=== PATIENT | female | born 1965 | race Caucasian/White ===

== ENCOUNTER → 2016-09-10 | Day surgery (SDC) | payer BC ==
[~2016-09-10] MED LIST: CLARINEX5 MG PO; FLEXERIL 10 MG10 MG PO; HORMONE; HORMONE REPLACEMENT TOP; PEPCID40 MG PO; PROTONIX40 MG PO; ZANTAC300 MG PO
== END | disposition home or self-care (01) ==
LOC: OR 09:26
PROVIDERS: Internal Medicine Gastroenterology
PROC: 0DB68ZX Excision of Stomach, Via Natural or Artificial Opening Endoscopic, Diagnostic (ICD-10-PCS; principal; 2016-09-10 13:00)
DX: K29.50 Unspecified chronic gastritis without bleeding (principal); K21.0 Gastro-esophageal reflux disease with esophagitis; K22.0 Achalasia of cardia; K22.8 Other specified diseases of esophagus; K59.09 Other constipation; E66.9 Obesity, unspecified; Z79.899 Other long term (current) drug therapy; Z90.710 Acquired absence of both cervix and uterus; Z90.49 Acquired absence of other specified parts of digestive tract
CPT/HCPCS: J2250; J3010; J7030

== ENCOUNTER → 2016-09-24 | Day surgery (SDC) | payer BC | END | disposition home or self-care (01) | LOC: OR 08:00 | PROVIDERS: Internal Medicine Gastroenterology | PROC: 0DBE8ZX Excision of Large Intestine, Via Natural or Artificial Opening Endoscopic, Diagnostic (ICD-10-PCS; 2016-09-24) | PROC: 0DBB8ZX Excision of Ileum, Via Natural or Artificial Opening Endoscopic, Diagnostic (ICD-10-PCS; principal; 2016-09-24 12:00) | DX: R59.0 Localized enlarged lymph nodes (principal); K64.0 First degree hemorrhoids; Z82.3 Family history of stroke; Z82.49 Family history of ischemic heart disease and other diseases of the circulatory system; Z88.8 Allergy status to other drugs, medicaments and biological substances; Z79.899 Other long term (current) drug therapy; Z90.49 Acquired absence of other specified parts of digestive tract; Z90.710 Acquired absence of both cervix and uterus; Z98.890 Other specified postprocedural states | CPT/HCPCS: J2250; J7030 ==

== ENCOUNTER → 2021-03-18 | Outpatient (CLI) | payer BC ==
[~2021-03-18] MED LIST changes: +ALLEGRA ALLERG180 MG PO; +BENTYL 20MG TAB20 MG PO; +PROTONIX 40 MG40 M1 PO
== END ==
LOC: KOH-I 13:36
DX: M54.5 Low back pain (principal); M51.36 Other intervertebral disc degeneration, lumbar region
CPT/HCPCS: 72148

== ENCOUNTER → 2021-05-07 | Outpatient (CLI) | payer BC | LOC: RAD 07:10 | DX: Z01.811 Encounter for preprocedural respiratory examination (principal) | CPT/HCPCS: 71046 ==